=== PATIENT | male | born 1940 | race African-American/Black ===

== ENCOUNTER 2018-09-08 04:40 | Inpatient (IN) ==
[2018-09-08] MEDS ORDERED: VANCOMYCIN INJ 1,000 MG in SODIUM CHLORIDE 0.9% 250 ML IV ONE (06:00)
[2018-09-08] MEDS ORDERED: ceFAZolin 1,000 MG in SYRINGE 1 EACH IV ONE (06:00)
[2018-09-08] MEDS ORDERED: ceFAZolin 1,000 MG VIAL ONE (06:04)
[2018-09-08] MEDS ORDERED: VANCOMYCIN 1,000 MG VIAL ONE (06:04)
[2018-09-08] MEDS: LACTATED RINGERS 1,000 ML IV SCH ×2 (06:40→17:33)
[2018-09-08] MEDS ORDERED: ROPIVACAINE 0.5% 30 ML VIAL ONE (06:42)
[2018-09-08] MEDS ORDERED: fentaNYL 100 MCG/2 ML VIAL ONE (06:42)
[2018-09-08] MEDS ORDERED: BUPIVACAINE SPINAL 0.75% 2 ML AMP SPINAL ONE (06:42)
[2018-09-08] MEDS ORDERED: PROPOFOL 200 MG/20 ML VIAL IV ONE (06:42)
[2018-09-08] MEDS ORDERED: BISACODYL 10 MG SUPP RECTAL PRN (07:10)
[2018-09-08] MEDS ORDERED: ONDANSETRON 4 MG/2 ML VIAL IV PRN ×2 (07:10→08:53)
[2018-09-08] MEDS ORDERED: MAGNESIUM HYDROXIDE SUSP 30 ML UDCUP PO PRN (07:10)
[2018-09-08] MEDS ORDERED: MORPHINE 4 MG/1 ML VIAL IV PRN ×2 (07:10→13:26)
[2018-09-08] MEDS ORDERED: LACTULOSE 20 GM/30 ML UDCUP PO PRN (07:10)
[2018-09-08] MEDS ORDERED: TEMAZEPAM 7.5 MG CAPSULE PO PRN (07:10)
[2018-09-08] MEDS ORDERED: diphenhydrAMINE CAP 25 MG CAPSULE PO PRN (07:10)
[2018-09-08] MEDS ORDERED: TRANEXAMIC ACID 1,000 MG/10 ML VIAL ONE (08:07)
[2018-09-08] MEDS ORDERED: ACETAMINOPHEN 1,000 MG/100 ML VIAL IV ONE (08:08)
[2018-09-08] MEDS ORDERED: PROMETHAZINE INJ 25 MG in SODIUM CHLORIDE 0.9% 50 ML IV PRN (08:53)
[2018-09-08] MEDS ORDERED: HYDROmorphone 2 MG/1 ML VIAL IV PRN (08:53)
[2018-09-08] MEDS ORDERED: MEPERIDINE 25 MG/1 ML VIAL IV PRN (08:53)
[2018-09-08] MEDS ORDERED: GLYCOPYRROLATE 0.4 MG/2 ML VIAL ONE (08:54)
[2018-09-08] MEDS ORDERED: KETAMINE 500 MG/10 ML VIAL ONE (08:54)
[2018-09-08] MEDS ORDERED: hydrALAZINE 20 MG/1 ML VIAL ONE (09:33)
[2018-09-08] MEDS ORDERED: hydrALAZINE 20 MG/1 ML VIAL IV ONE (09:44)
[2018-09-08] MEDS: ASPIRIN EC 81 MG TABLET PO SCH (13:21)
[2018-09-08] MEDS: ALLOPURINOL 300 MG TABLET PO SCH (13:22)
[2018-09-08] MEDS: CARVEDILOL 6.25 MG TABLET PO SCH ×2 (13:22→21:06)
[2018-09-08] MEDS: amLODIPine 10 MG TABLET PO SCH (13:23)
[2018-09-08] MEDS: TRIAMTERENE/HCTZ 37.5-25 MG CAPSULE PO SCH (13:26)
[2018-09-08] MEDS ORDERED: FUROSEMIDE 20 MG TABLET ONE (13:30)
[2018-09-08] MEDS ORDERED: CIPROFLOXACIN 500 MG TABLET ONE (13:30)
[2018-09-08] MEDS: ceFAZolin 2,000 MG in PREMIX 1 EACH IV SCH ×2 (13:37→21:05)
[2018-09-08] MEDS: MELOXICAM 7.5 MG TABLET PO SCH (13:44)
[2018-09-08] MEDS: CIPROFLOXACIN 500 MG TABLET PO SCH ×2 (13:44→21:06)
[2018-09-08] MEDS: DOCUSATE SODIUM 100 MG CAPSULE PO SCH ×2 (13:53→21:06)
[2018-09-08] MEDS: FUROSEMIDE 20 MG TABLET PO SCH (13:54)
[2018-09-08] MEDS: POTASSIUM CHLORIDE 20 MEQ TABLET PO SCH (13:54)
[2018-09-08 15:52] LABS: Basophils % 0.2 % (0.0-0.8); Eosinophils # 0.1 10*3/uL (0.0-0.87); Eosinophils % 0.7 % (0.00-10.9); Hematocrit 37.9 VOL% (42.0-52.0); Hemoglobin 11.8 GM/DL (14.0-18.0); Immature Granulocytes % 0.5 %; Immature Granulocytes Absolute 0.08 #; Lymphocytes % 13.8 % (21.2-54.2); Mean Corpuscular HGB Conc 31.1 GM/DL (32-36); Mean Corpuscular Volume 91.5 FL (87-102); Mean Platelet Volume 9.9 FL (9.6-12.0); Monocytes % 6.8 % (1.7-12.7); Platelet Count 212 T/CUMM (130-400); Red Blood Count 4.14 MC/CUMM (3.8-5.5); Red Cell Distribution Width 14.6 % (9.3-17.3); White Blood Count 14.7 T/CUMM (4-12)
[2018-09-08 16:11] LABS: Calcium 8.6 MG/DL (8.5-10.1); Osmolality,Calculated 279.7 MOS/KG (273-304)
[2018-09-08] MEDS: FONDAPARINUX 2.5 MG/0.5 ML SYRINGE SUBCUT SCH (18:43)
[2018-09-08] MEDS: SIMVASTATIN 20 MG TABLET PO SCH (21:06)
[2018-09-09 05:28] LABS: Basophils % 0.2 % (0.0-0.8); Eosinophils # 0.1 10*3/uL (0.0-0.87); Eosinophils % 0.9 % (0.00-10.9); Hemoglobin 10.6 GM/DL (14.0-18.0); Immature Granulocytes % 0.3 %; Immature Granulocytes Absolute 0.04 #; Lymphocytes # 2.1 10*3/uL (1.4-4.0); Lymphocytes % 16.7 % (21.2-54.2); Mean Corpuscular HGB Conc 32.1 GM/DL (32-36); Mean Corpuscular Volume 90.7 FL (87-102); Mean Platelet Volume 10.3 FL (9.6-12.0); Monocytes % 9.5 % (1.7-12.7); Neutrophils % 72.4 % (38.7-73.9); Platelet Count 202 T/CUMM (130-400); Red Blood Count 3.64 MC/CUMM (3.8-5.5); Red Cell Distribution Width 14.8 % (9.3-17.3); White Blood Count 12.7 T/CUMM (4-12)
[2018-09-09 06:02] LABS: Calcium 8.8 MG/DL (8.5-10.1); Osmolality,Calculated 280.4 MOS/KG (273-304)
[2018-09-09] MEDS: LACTATED RINGERS 1,000 ML IV SCH (06:33)
[2018-09-09] MEDS: TRIAMTERENE/HCTZ 37.5-25 MG CAPSULE PO SCH (09:00)
[2018-09-09] MEDS: CARVEDILOL 6.25 MG TABLET PO SCH ×2 (09:00→20:58)
[2018-09-09] MEDS: CIPROFLOXACIN 500 MG TABLET PO SCH ×2 (09:00→20:59)
[2018-09-09] MEDS: DOCUSATE SODIUM 100 MG CAPSULE PO SCH ×2 (09:00→20:58)
[2018-09-09] MEDS: ASPIRIN EC 81 MG TABLET PO SCH (09:00)
[2018-09-09] MEDS: FUROSEMIDE 20 MG TABLET PO SCH (09:01)
[2018-09-09] MEDS: ALLOPURINOL 300 MG TABLET PO SCH (09:01)
[2018-09-09] MEDS: amLODIPine 10 MG TABLET PO SCH (09:01)
[2018-09-09] MEDS: MELOXICAM 7.5 MG TABLET PO SCH (09:01)
[2018-09-09] MEDS: POTASSIUM CHLORIDE 20 MEQ TABLET PO SCH (09:01)
[2018-09-09] MEDS: FONDAPARINUX 2.5 MG/0.5 ML SYRINGE SUBCUT SCH (18:45)
[2018-09-09] MEDS: SIMVASTATIN 20 MG TABLET PO SCH (20:58)
[2018-09-10 05:12] LABS: Basophils % 0.3 % (0.0-0.8); Eosinophils # 0.2 10*3/uL (0.0-0.87); Eosinophils % 1.6 % (0.00-10.9); Hematocrit 32.4 VOL% (42.0-52.0); Hemoglobin 10.3 GM/DL (14.0-18.0); Immature Granulocytes % 0.7 %; Lymphocytes # 2.4 10*3/uL (1.4-4.0); Lymphocytes % 17.6 % (21.2-54.2); Mean Corpuscular HGB Conc 31.8 GM/DL (32-36); Mean Corpuscular Volume 90.3 FL (87-102); Mean Platelet Volume 10.2 FL (9.6-12.0); Monocytes % 7.3 % (1.7-12.7); Neutrophils % 72.5 % (38.7-73.9); Platelet Count 190 T/CUMM (130-400); Red Blood Count 3.59 MC/CUMM (3.8-5.5); Red Cell Distribution Width 14.5 % (9.3-17.3); White Blood Count 13.5 T/CUMM (4-12)
[2018-09-10 05:31] LABS: Calcium 8.6 MG/DL (8.5-10.1)
[2018-09-10] MEDS: MELOXICAM 7.5 MG TABLET PO SCH (09:07)
[2018-09-10] MEDS: ALLOPURINOL 300 MG TABLET PO SCH (09:07)
[2018-09-10] MEDS: CARVEDILOL 6.25 MG TABLET PO SCH ×2 (09:07→20:55)
[2018-09-10] MEDS: amLODIPine 10 MG TABLET PO SCH (09:07)
[2018-09-10] MEDS: TRIAMTERENE/HCTZ 37.5-25 MG CAPSULE PO SCH (09:07)
[2018-09-10] MEDS: FUROSEMIDE 20 MG TABLET PO SCH (09:07)
[2018-09-10] MEDS: CIPROFLOXACIN 500 MG TABLET PO SCH ×2 (09:08→20:55)
[2018-09-10] MEDS: ASPIRIN EC 81 MG TABLET PO SCH (09:08)
[2018-09-10] MEDS: POTASSIUM CHLORIDE 20 MEQ TABLET PO SCH (09:08)
[2018-09-10] MEDS: DOCUSATE SODIUM 100 MG CAPSULE PO SCH ×2 (09:08→20:55)
[2018-09-10] MEDS: FONDAPARINUX 2.5 MG/0.5 ML SYRINGE SUBCUT SCH (17:27)
[2018-09-10] MEDS: SIMVASTATIN 20 MG TABLET PO SCH (20:55)
[2018-09-11] MEDS: TRIAMTERENE/HCTZ 37.5-25 MG CAPSULE PO SCH (08:17)
[2018-09-11] MEDS: CIPROFLOXACIN 500 MG TABLET PO SCH (08:17)
[2018-09-11] MEDS: MELOXICAM 7.5 MG TABLET PO SCH (08:17)
[2018-09-11] MEDS: amLODIPine 10 MG TABLET PO SCH (08:17)
[2018-09-11] MEDS: ALLOPURINOL 300 MG TABLET PO SCH (08:17)
[2018-09-11] MEDS: ASPIRIN EC 81 MG TABLET PO SCH (08:18)
[2018-09-11] MEDS: DOCUSATE SODIUM 100 MG CAPSULE PO SCH (08:18)
[2018-09-11] MEDS: POTASSIUM CHLORIDE 20 MEQ TABLET PO SCH (08:18)
[2018-09-11] MEDS: FUROSEMIDE 20 MG TABLET PO SCH (08:18)
[2018-09-11] MEDS: CARVEDILOL 6.25 MG TABLET PO SCH (08:18)
[2018-09-11 12:27] VITALS: BP 118/65
== END 2018-09-11 15:35 | DRG 470 ==
LOC: EDBD → N.OR 04:40 → N.SDSINP 04:41 → N.3E 15:07
PROVIDERS: ADMIT Orthopaedic Surgery; ATTEND Orthopaedic Surgery

== ENCOUNTER 2019-02-27 19:19 | Observation (INO) ==
[2019-02-27] MEDS ORDERED: ONDANSETRON 4 MG/2 ML VIAL IV STA (19:51)
[2019-02-27] MEDS ORDERED: methylPREDNISolone SOD SUC 125 MG/2 ML VIAL IV STA (19:51)
[2019-02-27] MEDS ORDERED: ALBUTEROL/IPRATROPIUM 3 ML NEB RESP TX STA (19:51)
[2019-02-27] MEDS ORDERED: FUROSEMIDE 100 MG/10 ML VIAL IV STA (19:51)
[2019-02-27 20:18] LABS: Basophils % 0.3 % (0.0-0.8); Eosinophils # 0.5 10*3/uL (0.0-0.87); Eosinophils % 4.8 % (0.00-10.9); Hematocrit 33.9 VOL% (42.0-52.0); Hemoglobin 10.7 GM/DL (14.0-18.0); Immature Granulocytes % 0.5 %; Immature Granulocytes Absolute 0.05 #; Lymphocytes # 2.1 10*3/uL (1.4-4.0); Lymphocytes % 20.9 % (21.2-54.2); Mean Corpuscular HGB Conc 31.6 GM/DL (32-36); Mean Corpuscular Volume 88.1 FL (87-102); Mean Platelet Volume 9.5 FL (9.6-12.0); Monocytes % 10.1 % (1.7-12.7); Neutrophils % 63.4 % (38.7-73.9); Platelet Count 221 T/CUMM (130-400); Red Blood Count 3.85 MC/CUMM (3.8-5.5); Red Cell Distribution Width 14.6 % (9.3-17.3); White Blood Count 10.1 T/CUMM (4-12)
[2019-02-27 20:27] LABS: PT Patient Result 10.4 SECS (9.6-12.2)
[2019-02-27 20:40] LABS: Alanine Aminotransferase 35 U/L (16-61); Albumin 3.7 G/DL (3.4-5.0); Alkaline Phosphatase 80 U/L (45-117); Aspartate Amino Transferase 29 U/L (0-37); Bilirubin,Total < 0.39 MG/DL (0.2-1.0); Blood Urea Nitrogen 51 MG/DL (7-18); Estimated Glom Filtration Rate 56 ML/MIN; Glucose 97 MG/DL (74-106); Osmolality,Calculated 288.7 MOS/KG (273-304); Total Protein 7.3 G/DL (6.4-8.3)
[2019-02-27 21:10] LABS: Hyaline Casts,Urine 7 /LPF (0-3); Mucus,Urine Occasional /LPF (Occasional); RBC,Urine 3 /HPF (0-4); Squamous Epithelial Cell,Urine Occasional /HPF (0-10); WBC,Urine 15 /HPF (0-6)
[2019-02-27 21:22] LABS: Apearance,Urine Clear (Clear); Bilirubin,Urine Negative (Negative); Blood, Urine Negative (Negative); Glucose,Urine (UA) Negative (Negative); Ketones,Urine Negative (Negative); Nitrite,Urine Negative (Negative); Protein,Urine Negative; Urine Color Yellow (Yellow); Urine Specific Gravity 1.015 (1.001-1.035)
[2019-02-27 21:23] LABS: Urine Urobilinogen < 2.0 EU/DL (0.2-1.0)
[2019-02-27] MEDS ORDERED: cefTRIAXone 1,000 MG in SODIUM CHLORIDE 0.9% 100 ML IV STA (21:31)
[2019-02-27] MEDS ORDERED: BISACODYL 5 MG TABLET PO PRN (23:40)
[2019-02-27] MEDS ORDERED: ONDANSETRON 4 MG/2 ML VIAL IV PRN (23:40)
[2019-02-28] MEDS ORDERED: DOCUSATE SODIUM 100 MG CAPSULE PO PRN (00:48)
[2019-02-28 05:28] LABS: Albumin 3.5 G/DL (3.4-5.0); Bilirubin,Total 0.4 MG/DL (0.2-1.0); Calcium 9.2 MG/DL (8.5-10.1); Total Protein 7.8 G/DL (6.4-8.3)
[2019-02-28] MEDS ORDERED: LISINOPRIL 10 MG TABLET PO SCH (09:00)
[2019-02-28] MEDS: POTASSIUM CHLORIDE 20 MEQ TABLET PO SCH (09:09)
[2019-02-28] MEDS: FERROUS SULFATE 325 MG TABLET PO SCH (09:09)
[2019-02-28] MEDS: ALLOPURINOL 300 MG TABLET PO SCH (09:09)
[2019-02-28] MEDS: ASPIRIN EC 81 MG TABLET PO SCH (09:09)
[2019-02-28] MEDS ORDERED: ENOXAPARIN 100 MG/ML SYRINGE SUBCUT ONE (11:58)
[2019-02-28] MEDS ORDERED: FUROSEMIDE 40 MG/4 ML VIAL IV ONE (12:00)
[2019-02-28] MEDS: traZODone 50 MG TABLET PO PRN (21:50)
[2019-02-28] MEDS: ACETAMINOPHEN 325 MG TABLET PO PRN (21:50)
[2019-02-28] MEDS: SIMVASTATIN 20 MG TABLET PO SCH (21:52)
[2019-03-01] MEDS: cefTRIAXone 1,000 MG in SYRINGE 1 EACH IV SCH ×2 (01:04→23:25)
[2019-03-01] MEDS: ASPIRIN EC 81 MG TABLET PO SCH (09:21)
[2019-03-01] MEDS: ALLOPURINOL 300 MG TABLET PO SCH (09:21)
[2019-03-01] MEDS: POTASSIUM CHLORIDE 20 MEQ TABLET PO SCH (09:21)
[2019-03-01] MEDS: FERROUS SULFATE 325 MG TABLET PO SCH (09:22)
[2019-03-01] MEDS: ACETAMINOPHEN 325 MG TABLET PO PRN (09:24)
[2019-03-01] MEDS ORDERED: FUROSEMIDE 40 MG/4 ML VIAL IV ONE ×2 (10:23→18:00)
[2019-03-01] MEDS ORDERED: FUROSEMIDE 40 MG/4 ML VIAL IV SCH (16:00)
[2019-03-01] MEDS: SIMVASTATIN 20 MG TABLET PO SCH (20:48)
[2019-03-02 05:02] LABS: Basophils % 0.4 % (0.0-0.8); Eosinophils # 0.6 10*3/uL (0.0-0.87); Eosinophils % 5.7 % (0.00-10.9); Hematocrit 33.4 VOL% (42.0-52.0); Hemoglobin 10.5 GM/DL (14.0-18.0); Immature Granulocytes % 0.6 %; Immature Granulocytes Absolute 0.06 #; Lymphocytes # 2.3 10*3/uL (1.4-4.0); Lymphocytes % 23.9 % (21.2-54.2); Mean Corpuscular HGB Conc 31.4 GM/DL (32-36); Mean Corpuscular Volume 88.1 FL (87-102); Mean Platelet Volume 9.9 FL (9.6-12.0); Monocytes % 9.3 % (1.7-12.7); Neutrophils % 60.1 % (38.7-73.9); Platelet Count 251 T/CUMM (130-400); Red Blood Count 3.79 MC/CUMM (3.8-5.5); Red Cell Distribution Width 14.3 % (9.3-17.3); White Blood Count 9.6 T/CUMM (4-12)
[2019-03-02] MEDS: ALLOPURINOL 300 MG TABLET PO SCH (08:38)
[2019-03-02] MEDS: ASPIRIN EC 81 MG TABLET PO SCH (08:38)
[2019-03-02] MEDS: POTASSIUM CHLORIDE 20 MEQ TABLET PO SCH (08:38)
[2019-03-02] MEDS: FERROUS SULFATE 325 MG TABLET PO SCH (08:38)
[2019-03-02] MEDS: traZODone 50 MG TABLET PO PRN (20:40)
[2019-03-02] MEDS: SIMVASTATIN 20 MG TABLET PO SCH (20:40)
[2019-03-02] MEDS: cefTRIAXone 1,000 MG in SYRINGE 1 EACH IV SCH (23:36)
[2019-03-03 04:53] LABS: Basophils % 0.2 % (0.0-0.8); Eosinophils # 0.5 10*3/uL (0.0-0.87); Eosinophils % 5.7 % (0.00-10.9); Hematocrit 31.9 VOL% (42.0-52.0); Hemoglobin 10.1 GM/DL (14.0-18.0); Immature Granulocytes % 0.5 %; Immature Granulocytes Absolute 0.04 #; Lymphocytes # 2.2 10*3/uL (1.4-4.0); Lymphocytes % 25.7 % (21.2-54.2); Mean Corpuscular HGB Conc 31.7 GM/DL (32-36); Mean Corpuscular Volume 87.9 FL (87-102); Mean Platelet Volume 9.6 FL (9.6-12.0); Monocytes % 10.8 % (1.7-12.7); Neutrophils % 57.1 % (38.7-73.9); Platelet Count 231 T/CUMM (130-400); Red Blood Count 3.63 MC/CUMM (3.8-5.5); Red Cell Distribution Width 14.4 % (9.3-17.3); White Blood Count 8.4 T/CUMM (4-12)
[2019-03-03 05:10] LABS: Calcium 9.5 MG/DL (8.5-10.1); Osmolality,Calculated 287.3 MOS/KG (273-304)
[2019-03-03] MEDS: ALLOPURINOL 300 MG TABLET PO SCH (09:03)
[2019-03-03] MEDS: ASPIRIN EC 81 MG TABLET PO SCH (09:03)
[2019-03-03] MEDS: FERROUS SULFATE 325 MG TABLET PO SCH (09:03)
[2019-03-03] MEDS: POTASSIUM CHLORIDE 20 MEQ TABLET PO SCH (09:03)
[2019-03-03 15:37] VITALS: BP 117/51
== END 2019-03-03 17:09 | disposition home health service (06) ==
LOC: EDBD → EDUNIT# → N.EDINP 19:19 → N.ED 19:19 → SUATTDRO 23:40 → N.5E 02-28 00:17
PROVIDERS: ADMIT Internal Medicine; ATTEND Internal Medicine